=== PATIENT | female | born 1935 | race Caucasian/White ===

== ENCOUNTER 2018-06-27 11:29 | Emergency (ER) | payer MEDICARE, OTHER ==
[~2018-06-27] VITALS: Ht 167.6 cm; Wt 74.8 kg
[~2018-06-27 11:29] MED LIST: ACEASPCAF PO; ACET500; ACET500 PO; ALBIPROI; ALBIPROI INH; ALBU.083IS IH; ALBU.083IS INH; ALBU3IS INH; ALBU90OI; ALBUIS IH; ASCO250CH PO; ASPI325; ASPI325 PO; ASPI81CH PO; ASPI81EC PO; ATOR40TA; CAND32; CEFA125SU; CEFA250 PO; CEFA500ER; CEFP200 PO; CEPH500 PO; CIME400 PO; CIMETIDINE; CLOP75; CLOP75 PO; CODACE30; CODACE30 PO; CODE30 PO; EXCEDRIN TENSION; EXCEDRIN TENSION PO; FAMO40 PO; FLUT.05NI; GUAI600T33 PO; HYDR1TAB94 PO; Iron Supplemen325 MG PO; LISI10; LISI20; LISI20 PO; LORA1SY; LORPSEER24; METO100; METO100 PO; METO50; METO50 PO; NEBULIZER; NITR100CA PO; OMEP10ER PO; OMEP20ER; OMEP20ER PO; ONDA4 PO; ONDA4ODT MM; PRED20 PO; THYR60; THYR60 PO; THYROID MED; TRIHYD253A PO; Ventolin Soln3 ML INH; [UNRECOGNIZED DRUG - OTHER]
[2018-06-27 12:14] LABS: BASOPHILS ABSOLUTE AUTO 0.07 K/mm3 (0.00-0.23); BASOPHILS PERCENT AUTO 1 % (0-2); EOSINOPHILS ABSOLUTE AUTO 0.72 K/mm3 (0.00-0.68); EOSINOPHILS PERCENT AUTO 8 % (0-6); Hematocrit 37.1 % (33.0-51.0); Hemoglobin 11.7 g/dL (11.5-16.0); IMMATURE GRAN ABSOLUTE AUTO 0.02 K/mm3 (0.00-0.10); IMMATURE GRAN PERCENT AUTO 0 % (0-1); LYMPHOCYTES ABSOLUTE AUTO 3.47 K/mm3 (0.84-5.20); LYMPHOCYTES PERCENT AUTO 40 % (21-46); MONOCYTES ABSOLUTE AUTO 0.77 K/mm3 (0.16-1.47); MONOCYTES PERCENT AUTO 9 % (4-13); Mean Corpuscular HGB 33.5 pg (26.0-34.0); Mean Corpuscular HGB Conc 31.5 g/dL (31.5-36.5); Mean Corpuscular Volume 106 fL (80-100); Mean Platelet Volume 10.9 fL (9.1-12.4); NEUTROPHILS ABSOLUTE AUTO 3.72 K/mm3 (1.96-9.15); NEUTROPHILS PERCENT AUTO 42 % (41-73); Platelet Count 218 K/mm3 (150-400); RDW Coefficient Variation 12.7 % (11.7-14.2); RDW Standard Deviation 49.5 fL (35.1-46.3); Red Blood Cell Count 3.49 M/mm3 (3.80-5.20); White Blood Cell Count 8.77 K/mm3 (4.00-11.30)
[2018-06-27 12:35] LABS: Alanine Aminotransfer (ALT/SGP 18 U/L (12-78); Albumin, Blood 3.3 g/dL (3.4-5.0); Albumin/Globulin Ratio 0.8 (0.8-1.8); Alk Phos 72 U/L (50-136); Anion Gap 17 mmol/L (6-16); Aspartate Aminotrans (AST/SGOT 23 U/L (12-37); Bilirubin, Total 0.5 mg/dL (0.1-1.0); Blood Urea Nitrogen 38 mg/dL (8-24); Bun/Creatinine Ratio 16.7 (12.0-20.0); CO2, Blood 18 mmol/L (21-32); Calcium, Blood 9.4 mg/dL (8.5-10.1); Chloride, Blood 107 mmol/L (98-108); Creatinine, Blood 2.27 mg/dL (0.40-1.00); Globulin, Blood 4.4 g/dL (2.2-4.0); Glomerular Filtration Rate 22 (60-); Glucose, Blood 82 mg/dL (70-99); Sodium, Blood 142 mmol/L (136-145); Total Protein, Blood 7.7 g/dL (6.4-8.2); Troponin I <0.015 ng/mL (0.000-0.040)
[2018-06-27 13:47] LABS: Source, Urine Clean Catch
[2018-06-27 13:53] LABS: Blood, Urine Neg (Neg); Glucose Qualitative, Urine Neg (Neg); Ketones, Urine 2+ (Neg); Leukocyte Esterase, Urine 1+ (Neg); Nitrite, Urine Neg (Neg); Protein, Urine 1+ (Neg); Urobilinogen, Urine NORM (Normal)
[2018-06-27 14:34] LABS: Appearance, Urine Clear (Clear); Bilirubin, Urine 1+ (Neg); Color, Urine Yellow (P-Yellow)
[2018-06-27 14:37] LABS: Red Blood Cells, Urine Not Seen /hpf (0-2)
[2018-06-27 14:38] LABS: Bacteria Rare /hpf; Squamous Epithelial Cells Rare /hpf (Few); White Blood Cells, Urine 0-2 /hpf (0-5)
== END 2018-06-27 15:58 | disposition home or self-care (01) ==
LOC: ER 11:29
PROVIDERS: Emergency Medicine
DX: S09.90XA Unspecified injury of head, initial encounter (principal); N18.9 Chronic kidney disease, unspecified; E86.0 Dehydration; W06.XXXA Fall from bed, initial encounter; I25.2 Old myocardial infarction; I10 Essential (primary) hypertension; Z88.8 Allergy status to other drugs, medicaments and biological substances; Z88.6 Allergy status to analgesic agent; Z88.0 Allergy status to penicillin; Z88.2 Allergy status to sulfonamides; Z88.1 Allergy status to other antibiotic agents; Z79.899 Other long term (current) drug therapy; Z79.82 Long term (current) use of aspirin
CPT/HCPCS: 70450; 71046; 72125; 80053; 81001; 84484; 85025; 93005; 93010; 96360; 99285-25; J7120

== ENCOUNTER 2018-10-01 13:06 | Inpatient (IN) | payer MEDICARE, OTHER ==
[~2018-10-01] VITALS: Ht 152.4 cm; Wt 56.9 kg
[2018-10-01] MEDS ORDERED: LEVSOD88 PO (13:28)
[2018-10-01] MEDS ORDERED: TYLECOD3 PO (13:29)
[2018-10-01] MEDS ORDERED: METO100ER PO (13:29)
[2018-10-01] MEDS ORDERED: MINO50 PO (13:30)
[2018-10-01] MEDS ORDERED: Advair Hfa 230-12 GM (13:30)
[2018-10-01] MEDS ORDERED: ASPI81CH PO (13:30)
[2018-10-01] MEDS ORDERED: PERISHIELD OIN452 GM (13:30)
[2018-10-01] MEDS ORDERED: CIME400 PO (13:30)
[2018-10-01 13:42] LABS: BASOPHILS ABSOLUTE AUTO 0.09 K/mm3 (0.00-0.23); BASOPHILS PERCENT AUTO 1 % (0-2); EOSINOPHILS ABSOLUTE AUTO 0.27 K/mm3 (0.00-0.68); EOSINOPHILS PERCENT AUTO 2 % (0-6); Hematocrit 36.3 % (33.0-51.0); Hemoglobin 11.6 g/dL (11.5-16.0); IMMATURE GRAN ABSOLUTE AUTO 0.05 K/mm3 (0.00-0.10); IMMATURE GRAN PERCENT AUTO 0 % (0-1); LYMPHOCYTES ABSOLUTE AUTO 3.84 K/mm3 (0.84-5.20); LYMPHOCYTES PERCENT AUTO 32 % (21-46); MONOCYTES ABSOLUTE AUTO 0.85 K/mm3 (0.16-1.47); MONOCYTES PERCENT AUTO 7 % (4-13); Mean Corpuscular HGB 34.3 pg (26.0-34.0); Mean Corpuscular Volume 107 fL (80-100); Mean Platelet Volume 10.1 fL (9.1-12.4); NEUTROPHILS ABSOLUTE AUTO 6.78 K/mm3 (1.96-9.15); NEUTROPHILS PERCENT AUTO 57 % (41-73); Platelet Count 208 K/mm3 (150-400); RDW Coefficient Variation 15.4 % (11.7-14.2); RDW Standard Deviation 61.5 fL (35.1-46.3); Red Blood Cell Count 3.38 M/mm3 (3.80-5.20); White Blood Cell Count 11.88 K/mm3 (4.00-11.30)
[2018-10-01 14:04] LABS: Alanine Aminotransfer (ALT/SGP 13 U/L (12-78); Albumin, Blood 2.5 g/dL (3.4-5.0); Albumin/Globulin Ratio 0.5 (0.8-1.8); Alk Phos 97 U/L (50-136); Anion Gap 15 mmol/L (6-16); Aspartate Aminotrans (AST/SGOT 23 U/L (12-37); Bilirubin, Total 0.5 mg/dL (0.1-1.0); Blood Urea Nitrogen 30 mg/dL (8-24); Bun/Creatinine Ratio 15.6 (12.0-20.0); CO2, Blood 18 mmol/L (21-32); Calcium, Blood 8.9 mg/dL (8.5-10.1); Chloride, Blood 105 mmol/L (98-108); Creatinine, Blood 1.92 mg/dL (0.40-1.00); Globulin, Blood 4.8 g/dL (2.2-4.0); Glomerular Filtration Rate 26 (60-); Glucose, Blood 131 mg/dL (70-99); Potassium, Blood 4.3 mmol/L (3.5-5.5); Sodium, Blood 138 mmol/L (136-145); Total Protein, Blood 7.3 g/dL (6.4-8.2); Troponin I <0.015 ng/mL (0.000-0.040)
[2018-10-01 16:33] LABS: Source, Urine Catheter
[2018-10-01 16:45] LABS: Bilirubin, Urine Neg (Neg); Blood, Urine 4+ (Neg); Glucose Qualitative, Urine Neg (Neg); Ketones, Urine 2+ (Neg); Leukocyte Esterase, Urine 3+ (Neg); Nitrite, Urine Pos (Neg); Protein, Urine 2+ (Neg); Urobilinogen, Urine NORM (Normal); pH, Urine 6.5 (5.0-8.0)
[2018-10-01 16:56] LABS: Appearance, Urine Clear (Clear); Color, Urine Yellow (P-Yellow)
[2018-10-01 16:57] LABS: White Blood Cells, Urine 50-100 /hpf (0-5)
[2018-10-01 16:58] LABS: Bacteria Mod /hpf; Red Blood Cells, Urine 25-50 /hpf (0-2); Squamous Epithelial Cells Mod /hpf (Few)
--- NOTE | 2018-10-02 01:03 | NUR ---
PATIENT IS A NEW ADMIT FROM THE ED. THREE PERSON TRANSFER FROM THE [facility] TO BED. AXOX 3 AND BEDFAST. PATIENT REPORTS GENERAL PAIN AND TYLENOL GIVEN PER EMAR. FAMILY PRESENT ON ADMIT. DAUGHTER AND STAYING THE NIGHT. FAMILY AND PATIENT ORIENTED TO CALL LIGHT SYSTEM. CALL LIGHT IN REACH.
--- NOTE | 2018-10-02 01:06 | NUR ---
IV ABX INFUSING WITH NS FLUSH. IV ABX COMPLETE AND LR STARTED AT 100mL/HR. PHOTO TAKEN OF SACRAL PRESSURE ULCER AND IN CHART. CONSENT SIGNED. CALL LIGHT IN REACH. WILL CONTINUE TO MONITOR.
--- NOTE | 2018-10-02 01:33 | NUR ---
CODE STATUS CHANGE BY PATIENT AND FAMILY FROM DNR TO FULL CODE. HOSPITLIST B[employer]T [employer]OX SEALING MACHINE FEEDER NOTIFIED AND ORDERED CHANGE .
--- NOTE | 2018-10-02 04:26 | NUR ---
SHIFT SUMMARY PATIENT HAD NO ACUTE CHANGES OBSERVED DURING THE SHIFT. AXOX 3 AND BEDFAST PER FAMILY WITH WEAKNESS. PIV REMAINS INTACT. IV ABX INFUSED. LR INFUSING AT 100mL/HR. REPORTED GENERAL PAIN AND RECEIVED TYLENOL PER EMAR. SACRAL STAGE 3 PRESSURE ULCER, PHOTO IN CHART. DAUGHTER AND SON PRESENT ON ADMIT AND STAYING THE SHIFT. VSS/AFEBRILE. CALL LIGHT IN REACH. BED IN LOWEST POSITION. WILL CONTINUE TO MONITOR UNTIL DAY SHIFT NURSE ASSUMES CARE.
[2018-10-02 06:05] LABS: BASOPHILS ABSOLUTE AUTO 0.06 K/mm3 (0.00-0.23); BASOPHILS PERCENT AUTO 1 % (0-2); EOSINOPHILS ABSOLUTE AUTO 0.07 K/mm3 (0.00-0.68); EOSINOPHILS PERCENT AUTO 1 % (0-6); Hemoglobin 10.9 g/dL (11.5-16.0); IMMATURE GRAN ABSOLUTE AUTO 0.05 K/mm3 (0.00-0.10); IMMATURE GRAN PERCENT AUTO 1 % (0-1); LYMPHOCYTES ABSOLUTE AUTO 3.16 K/mm3 (0.84-5.20); LYMPHOCYTES PERCENT AUTO 33 % (21-46); MONOCYTES ABSOLUTE AUTO 0.94 K/mm3 (0.16-1.47); MONOCYTES PERCENT AUTO 10 % (4-13); Mean Corpuscular HGB Conc 30.3 g/dL (31.5-36.5); Mean Corpuscular Volume 109 fL (80-100); Mean Platelet Volume 10.3 fL (9.1-12.4); NEUTROPHILS ABSOLUTE AUTO 5.42 K/mm3 (1.96-9.15); NEUTROPHILS PERCENT AUTO 56 % (41-73); Platelet Count 161 K/mm3 (150-400); RDW Coefficient Variation 15.3 % (11.7-14.2); RDW Standard Deviation 62.3 fL (35.1-46.3)
[2018-10-02 06:19] LABS: Bun/Creatinine Ratio 18.1 (12.0-20.0); Calcium, Blood 8.1 mg/dL (8.5-10.1); Creatinine, Blood 1.49 mg/dL (0.40-1.00); Potassium, Blood 3.9 mmol/L (3.5-5.5)
--- NOTE | 2018-10-02 13:57 | NUR ---
FRESH MEPILEX APPLIED TO SACRAL DECUBITUS AFTER ATTENDS CHANGE AND MAURY CARE.
[2018-10-02 14:22] LABS: Percent Saturation 43.6 % (15.0-50.0)
[2018-10-02 14:46] LABS: Albumin, Blood 2.3 g/dL (3.4-5.0); Anion Gap 19 mmol/L (6-16); Blood Urea Nitrogen 25 mg/dL (8-24); Bun/Creatinine Ratio 17.4 (12.0-20.0); CO2, Blood 13 mmol/L (21-32); Calcium, Blood 8.3 mg/dL (8.5-10.1); Chloride, Blood 106 mmol/L (98-108); Creatinine, Blood 1.44 mg/dL (0.40-1.00); Glomerular Filtration Rate 37 (60-); Glucose, Blood 87 mg/dL (70-99); Phosphorus, Blood 2.6 mg/dL (2.5-4.9); Potassium, Blood 4.5 mmol/L (3.5-5.5); Sodium, Blood 138 mmol/L (136-145)
--- NOTE | 2018-10-02 18:00 | NUR ---
SHIFT SUMMARY PT WITH GENERALIZED PAIN AND DYSURIA. CONFUSED BUT OX1 SELF, FAMILY. BEDREST. LIVES AT HOME WITH FAMILY. STAGE 3 DECUBITUS TO SACRUM-MEPILEX IN PLACE. INCONTINENT. REFUSING MEALS ONLY TAKING SMALL SIPS AND BITES AFTER ENCOURAGEMENT FROM FAMILY. DRY HEAVING AND C/O NAUSEA INTERMITTENTLY THROUGHOUT SHIFT NO VOMITING. FAMILY REQUESTING PATIENT BE GIVEN TYLENOL #3 THAT SHE HAS BEEN TAKING AT HOME FOR PAST 3 YEARS AND HAS BEEN EFFECTIVE.
--- NOTE | 2018-10-02 20:34 | NUR ---
NS STARTED AT 125mL/HR. PATIENT SLEEPING BUT AUROUSABLE. FAMILY PRESENT AND STAYING FOR THE SHIFT. CALL LIGHT IN REACH.
--- NOTE | 2018-10-03 04:36 | NUR ---
SHIFT SUMMARY PATIENT HAD NO ACUTE CHANGES OBSERVED DURING THE SHIFT. REPORTED GENERAL PAIN AND RECEIVED TYLENOL PER EMAR X TWO. DAUGHTER PRESENT COMPLETE SHIFT IN ROOM. PIV REMAINS INTACT. NS INFUSING AT 125mL/HR. DENIES SOB AND N/V. VSS/AFEBRILE. TAKES MEDICATION 1-2 AT A TIME. AXO X3 AND DAUGHTER REPORTS BEDFAST LAST FEW WEEKS WITH INCREASE WEAKNESS AND POOR APPETITE. CALL LIGHT IN REACH. BED IN LOWEST POSITION. WILL CONTINUE TO MONITOR UNTIL DAY SHIFT NURSE ASSUMES CARE.
[2018-10-03 05:40] LABS: BASOPHILS ABSOLUTE AUTO 0.04 K/mm3 (0.00-0.23); BASOPHILS PERCENT AUTO 1 % (0-2); EOSINOPHILS PERCENT AUTO 1 % (0-6); Hematocrit 32.8 % (33.0-51.0); Hemoglobin 10.4 g/dL (11.5-16.0); IMMATURE GRAN ABSOLUTE AUTO 0.02 K/mm3 (0.00-0.10); IMMATURE GRAN PERCENT AUTO 0 % (0-1); LYMPHOCYTES ABSOLUTE AUTO 2.81 K/mm3 (0.84-5.20); LYMPHOCYTES PERCENT AUTO 36 % (21-46); MONOCYTES ABSOLUTE AUTO 0.61 K/mm3 (0.16-1.47); MONOCYTES PERCENT AUTO 8 % (4-13); Mean Corpuscular HGB 33.9 pg (26.0-34.0); Mean Corpuscular HGB Conc 31.7 g/dL (31.5-36.5); Mean Corpuscular Volume 107 fL (80-100); Mean Platelet Volume 10.3 fL (9.1-12.4); NEUTROPHILS PERCENT AUTO 55 % (41-73); Platelet Count 176 K/mm3 (150-400); RDW Coefficient Variation 15.3 % (11.7-14.2); Red Blood Cell Count 3.07 M/mm3 (3.80-5.20); White Blood Cell Count 7.88 K/mm3 (4.00-11.30)
[2018-10-03 06:09] LABS: Albumin, Blood 2.1 g/dL (3.4-5.0); Anion Gap 15 mmol/L (6-16); Blood Urea Nitrogen 19 mg/dL (8-24); Bun/Creatinine Ratio 14.6 (12.0-20.0); CO2, Blood 17 mmol/L (21-32); Calcium, Blood 7.5 mg/dL (8.5-10.1); Chloride, Blood 110 mmol/L (98-108); Glomerular Filtration Rate 41 (60-); Glucose, Blood 105 mg/dL (70-99); Phosphorus, Blood 2.3 mg/dL (2.5-4.9); Potassium, Blood 3.4 mmol/L (3.5-5.5); Sodium, Blood 142 mmol/L (136-145)
--- NOTE | 2018-10-03 19:23 | NUR ---
SHIFT SUMMARY: NO ACUTE CHANGES TO REPORT THIS SHIFT. PT A&O; OCCASIONAL CONFUSION. PT WEAK; ON BEDREST. MEDICATED FOR NAUSEA & PAIN PER EMAR. IV ABX CONTINUING. REPORT GIVEN TO ONCOMING RN.
--- NOTE | 2018-10-04 06:53 | NUR ---
SHIFT SUMMARY THE PT IS A&O X 2-3. SHE COMPLAINED OF NAUSEA AND ABD PAIN, AND IN THE EVENING BEGAN HAVING COFFEE GROUND EMESIS WELL BLACK, TARRY STOOL REPORTED BY THE SURGICAL SERVICES TECH. THE HOSPITALIST, SEYMOUR BERG, WAS NOTIFIED, WHO ASKED THAT GI DR MATOS, WHO WAS ALREADY BEING CONSULTED, ALSO BE NOTIFIED. DR MATOS REITERATED THE NEED FOR AN UPPER ENDOSCOPY, AND SPOKE WITH THE PATIENT AND THE PATIENT'S SON AND DAUGHTER WHO WERE IN THE ROOM. THE PT WAS ABLE TO KEEP PO MEDS DOWN, AND SO HER AM THYROID PILL WAS HELD. PT WAS MEDICATED WITH REGLAN X 1, AND ZOFRAN X 1 FOR NAUSEA. PT'S BP WAS ELEVATED DURING EVENING VITALS, AND SHE WAS GIVEN HYDRALAZINE X 1. ALL OTHER VITALS STABLE. NO OTHER ACUTE CHANGES IN PT CONDITION NOTED. WILL CONTINUE TO MONITOR AND TREAT PER EMAR UNTIL HAND OFF TO DAY SHIFT.
[2018-10-04 07:13] LABS: Albumin, Blood 2.2 g/dL (3.4-5.0); Anion Gap 19 mmol/L (6-16); Blood Urea Nitrogen 17 mg/dL (8-24); Bun/Creatinine Ratio 15.3 (12.0-20.0); CO2, Blood 12 mmol/L (21-32); Calcium, Blood 7.1 mg/dL (8.5-10.1); Chloride, Blood 111 mmol/L (98-108); Creatinine, Blood 1.11 mg/dL (0.40-1.00); Glomerular Filtration Rate 50 (60-); Glucose, Blood 224 mg/dL (70-99); Phosphorus, Blood 1.8 mg/dL (2.5-4.9); Potassium, Blood 3.5 mmol/L (3.5-5.5); Sodium, Blood 142 mmol/L (136-145)
[2018-10-04 08:42] LABS: BASOPHILS ABSOLUTE AUTO 0.01 K/mm3 (0.00-0.23); BASOPHILS PERCENT AUTO 0 % (0-2); EOSINOPHILS PERCENT AUTO 0 % (0-6); Hematocrit 33.2 % (33.0-51.0); Hemoglobin 10.9 g/dL (11.5-16.0); IMMATURE GRAN ABSOLUTE AUTO 0.12 K/mm3 (0.00-0.10); IMMATURE GRAN PERCENT AUTO 1 % (0-1); LYMPHOCYTES ABSOLUTE AUTO 1.52 K/mm3 (0.84-5.20); LYMPHOCYTES PERCENT AUTO 16 % (21-46); MONOCYTES ABSOLUTE AUTO 0.46 K/mm3 (0.16-1.47); MONOCYTES PERCENT AUTO 5 % (4-13); Mean Corpuscular HGB 33.5 pg (26.0-34.0); Mean Corpuscular HGB Conc 32.8 g/dL (31.5-36.5); Mean Platelet Volume 10.2 fL (9.1-12.4); NEUTROPHILS ABSOLUTE AUTO 7.66 K/mm3 (1.96-9.15); NEUTROPHILS PERCENT AUTO 78 % (41-73); Platelet Count 192 K/mm3 (150-400); RDW Coefficient Variation 15.6 % (11.7-14.2); RDW Standard Deviation 58.5 fL (35.1-46.3); Red Blood Cell Count 3.25 M/mm3 (3.80-5.20); White Blood Cell Count 9.77 K/mm3 (4.00-11.30)
[2018-10-04 08:43] LABS: Mean Corpuscular Volume 102 fL (80-100)
--- NOTE | 2018-10-04 13:16 | NUR ---
History, Chart, Medications and Allergies reviewed before start of procedure BY MARIAELENA TEJADA. Patient confirms NPO status and agrees with scheduled surgery. Lungs clear T/O to Auscultation.
--- NOTE | 2018-10-04 13:55 | NUR ---
10/04/18 1355 Amari Granado History, Chart, Medications and Allergies reviewed before start of procedure.MONITOR INTACT WITH CONTINUOUS PULSE OXIMETRY AND INTERMITTENT BP.3-LEAD EKG REVIEWED WITH PHYSICIAN PRIOR TO START OF PROCEDURE.O2 VIA N/C INTACT THROUGHOUT SEDATION/PROCEDURE. Patient confirms NPO status and agrees with scheduled surgery.See Anesthesia record.
--- NOTE | 2018-10-04 17:37 | NUR ---
PT A/OX3, PLEASANT AND COOPERATIVE, THE PT IS A TURN Q2 HRS, PT HAD 2 SOFT BM TODAY, LOTION WAS APPLIED TO EXCORIATED AREA, THE PT APPEARS TO BE BREATHING EASILY ON RA AT THIS TIME, THE PTS VSS WERE STABLE T/O THE DA, THE PT IS DISCHARGED, THE PTS VERBALIZED UNDERSTANDING OF THE DC INSTRUCTIONS, PT AWAITING TO GO HOME AT THIS TIME, PERSCRIPTIONS FAXED TO [employer] REQUESTED
--- NOTE | 2018-10-04 17:45 | NUR ---
PT A/OX3, PLEASANT AND COOPERATIVE, THE PT HAS BEEN BEDBOUND TODAY DUE TO EXTREM WEAKNESS AND NAUSEA/ VOMITING, THE PT HAS HAD LITTLE PO INTAKE TODAY, THE PT HAD AN EGD DONE TODAY WHICH SHOWED MULTIPLE UCLER/LESIONS TODAY, NEW ORDERS WERE GIVEN, THE PTS FAMILY IS AT THE BEDSIDE, THE PT APPEARS TO BE BREATHING EASILY ON O2 AT THIS TIME, CALL LIGHT IN REACH BED IN LOW POSITION
[2018-10-05 05:15] LABS: BASOPHILS ABSOLUTE AUTO 0.01 K/mm3 (0.00-0.23); BASOPHILS PERCENT AUTO 0 % (0-2); EOSINOPHILS PERCENT AUTO 0 % (0-6); Hematocrit 25.1 % (33.0-51.0); Hemoglobin 8.4 g/dL (11.5-16.0); IMMATURE GRAN ABSOLUTE AUTO 0.05 K/mm3 (0.00-0.10); IMMATURE GRAN PERCENT AUTO 1 % (0-1); LYMPHOCYTES ABSOLUTE AUTO 2.54 K/mm3 (0.84-5.20); LYMPHOCYTES PERCENT AUTO 24 % (21-46); MONOCYTES ABSOLUTE AUTO 0.68 K/mm3 (0.16-1.47); MONOCYTES PERCENT AUTO 6 % (4-13); Mean Corpuscular HGB 33.6 pg (26.0-34.0); Mean Corpuscular HGB Conc 33.5 g/dL (31.5-36.5); Mean Corpuscular Volume 100 fL (80-100); Mean Platelet Volume 10.5 fL (9.1-12.4); NEUTROPHILS PERCENT AUTO 70 % (41-73); Platelet Count 156 K/mm3 (150-400); RDW Coefficient Variation 15.8 % (11.7-14.2); RDW Standard Deviation 57.6 fL (35.1-46.3); White Blood Cell Count 10.78 K/mm3 (4.00-11.30)
[2018-10-05 05:37] LABS: Bun/Creatinine Ratio 13.6 (12.0-20.0); Calcium, Blood 6.5 mg/dL (8.5-10.1); Creatinine, Blood 1.03 mg/dL (0.40-1.00); Phosphorus, Blood 2.9 mg/dL (2.5-4.9); Potassium, Blood 3.1 mmol/L (3.5-5.5)
[2018-10-05 05:50] LABS: Magnesium, Blood 0.7 mg/dL (1.6-2.4)
--- NOTE | 2018-10-05 06:42 | NUR ---
SHIFT SUMMARY PT IS A&O X 2-3, THOUGH DROWSY THROUGH THE NIGHT. THE PT SLEPT WELL DURING THE NIGHT, BUT WHEN WOKEN FOR MEDS OR CARE SHE WOULD REPEAT "OH GOD", AND STATED THAT SHE "ISN'T FEELING WELL" THOUGH WOULDN'T SPECIFY ANY FURTHER. PT WAS MEDICATED ONCE FOR NAUSEA WITH PRN ZOFRAN. SHE WAS ALSO MEDICATED ONCE FOR A HEADACHE WITH TYLENOL, BUT WAS ONLY ABLE TO SWALLOW ONE OF THE PILLS AND REFUSED THE OTHER. DURING AM LABS, MAGNESIUM WAS FOUND TO BE CRITICALLY LOW AT 0.7. THE HOSPITALIST DR FERMIN WAS CALLED, AND A 2 MG IV DOSE WAS ORDERED AND STARTED. VITAL SIGNS STABLE. NO OTHER ACUTE CHANGES IN PT CONDITION NOTED. WILL CONTINUE TO MONITOR AND TREAT PER EMAR UNTIL HAND OFF TO DAY SHIFT.
--- NOTE | 2018-10-05 15:59 | NUR ---
PT IS A/OX3, PLEASANT AND COOPERATIVE, THE PT HAS SOME MILD CONFUSION AT TIMES, THE PT IS VERY PALE IN COLOR, VERY FRAIL AND WEAK, UP WITH 1-2 PERSON ASSIST TO THE CHAIR, THE PTS FAMILY HAS BEEN AT THE BEDSIDE T/O, AND PARTICIPATES WITH THE PTS CARE, THE PT HAS DIFFICULTY SWALLOWING DUE TO PAIN, AND IS TAKING VERY LITTLE PO NUTRITION, NO EMISIS OR BLACK TARY STOOLS SO FAR THIS SHIFT, CALL LIGHT IN REACH BED IN THE LOW POSITION
--- NOTE | 2018-10-06 04:46 | NUR ---
*SHIFT SUMMARY* PATIENT RESTING IN BED, SON AND DAUGHTER AT BEDSIDE. PATIENT IS ALERT AND ORIENTED TO SELF AND FAMILY. PATIENT COMPLAINS OF NAUSEA. PATIENT COUGHED AFTER TAKING A DRINK OF WATER. PATIENT STATES IT HURTS TO SWALLOW. PATIENT STATES THAT SHE FEELS SHE CAN SWALLOW THE MAGNESIUM PILL ONCE. PATIENT STATED SHE WOULD TRY THE PILL CRUSHED IN [place]ERB[place]. PATIENT STARTED TO VOMIT AFTER SWALLOWING BITE OF [place]ERB[place]. PATIENT WAS ABLE TO HOLD IT DOWN AND NOT VOMIT. PATIENT SLEPT OFF AND ON THROUGHOUT THE NIGHT. PATIENT AWOKE THROUGHOUT THE NIGHT AND COMPLAINED OF LEG PAIN. ONLY NEW ORDER WAS FOR K-PAD, PATIENT REPORTS HAVING SOME RELEIF WITH HEATING PAD.
[2018-10-06 05:44] LABS: BASOPHILS ABSOLUTE AUTO 0.01 K/mm3 (0.00-0.23); BASOPHILS PERCENT AUTO 0 % (0-2); EOSINOPHILS PERCENT AUTO 0 % (0-6); Hematocrit 25.7 % (33.0-51.0); Hemoglobin 8.5 g/dL (11.5-16.0); IMMATURE GRAN ABSOLUTE AUTO 0.07 K/mm3 (0.00-0.10); IMMATURE GRAN PERCENT AUTO 1 % (0-1); LYMPHOCYTES ABSOLUTE AUTO 1.87 K/mm3 (0.84-5.20); LYMPHOCYTES PERCENT AUTO 21 % (21-46); MONOCYTES ABSOLUTE AUTO 0.46 K/mm3 (0.16-1.47); MONOCYTES PERCENT AUTO 5 % (4-13); Mean Corpuscular HGB 34.1 pg (26.0-34.0); Mean Corpuscular HGB Conc 33.1 g/dL (31.5-36.5); Mean Platelet Volume 10.3 fL (9.1-12.4); NEUTROPHILS ABSOLUTE AUTO 6.39 K/mm3 (1.96-9.15); NEUTROPHILS PERCENT AUTO 73 % (41-73); NRBC ABSOLUTE 0.02 K/mm3 (0.00-0.02); NRBC Auto 0.2 /100 WBC (0.0-0.2); Platelet Count 165 K/mm3 (150-400); RDW Coefficient Variation 16.4 % (11.7-14.2); RDW Standard Deviation 62.3 fL (35.1-46.3); Red Blood Cell Count 2.49 M/mm3 (3.80-5.20)
[2018-10-06 05:50] LABS: Mean Corpuscular Volume 103 fL (80-100)
[2018-10-06 06:01] LABS: Bun/Creatinine Ratio 11.1 (12.0-20.0); Calcium, Blood 6.6 mg/dL (8.5-10.1); Creatinine, Blood 0.99 mg/dL (0.40-1.00); Magnesium, Blood 1.6 mg/dL (1.6-2.4); Potassium, Blood 3.4 mmol/L (3.5-5.5)
--- NOTE | 2018-10-06 17:34 | NUR ---
PT HAS INTERMITTENT NAUSEA. HARD TO KEEP DOWN ANY FOOD. MEDS TAKEN CRUSHED WITH LORNA. PT C/O PAIN MEDICATED PER EMAR. FAMILY AT BED SIDE. NS @125/HR. POSITION CHANGES Q2 WITH CHANGES. MEPLEX TO SACRUM CHANGED. WILL CONTINUE TO MONITOR.
--- NOTE | 2018-10-07 04:38 | NUR ---
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 NOT TOLERATING MUCH PO. SHE TOLERATES ICE CHIPS, SMALL SIPS OF WATER AND SMALL BITES SHERBERT AND THE OCCASSIONAL PILL CUT INTO VERY SMALL PIECES. COMPLAINS OF PAIN BUT NOT TOLERATING PO PAIN PILLS. CBR. TURN Q2. FAMILY REMAINS AT BEDSIDE. INCONTINENT
[2018-10-07 11:21] LABS: Hematocrit 25.4 % (33.0-51.0); Hemoglobin 8.2 g/dL (11.5-16.0)
[2018-10-07 14:06] LABS: BASOPHILS ABSOLUTE AUTO 0.01 K/mm3 (0.00-0.23); BASOPHILS PERCENT AUTO 0 % (0-2); EOSINOPHILS PERCENT AUTO 0 % (0-6); Hematocrit 24.8 % (33.0-51.0); Hemoglobin 8.1 g/dL (11.5-16.0); IMMATURE GRAN ABSOLUTE AUTO 0.05 K/mm3 (0.00-0.10); IMMATURE GRAN PERCENT AUTO 1 % (0-1); LYMPHOCYTES ABSOLUTE AUTO 1.67 K/mm3 (0.84-5.20); LYMPHOCYTES PERCENT AUTO 21 % (21-46); MONOCYTES ABSOLUTE AUTO 0.46 K/mm3 (0.16-1.47); MONOCYTES PERCENT AUTO 6 % (4-13); Mean Corpuscular HGB 34.2 pg (26.0-34.0); Mean Corpuscular HGB Conc 32.7 g/dL (31.5-36.5); Mean Corpuscular Volume 105 fL (80-100); Mean Platelet Volume 10.5 fL (9.1-12.4); NEUTROPHILS ABSOLUTE AUTO 5.89 K/mm3 (1.96-9.15); NEUTROPHILS PERCENT AUTO 73 % (41-73); NRBC ABSOLUTE 0.02 K/mm3 (0.00-0.02); NRBC Auto 0.2 /100 WBC (0.0-0.2); Platelet Count 171 K/mm3 (150-400); RDW Coefficient Variation 17.2 % (11.7-14.2); RDW Standard Deviation 65.7 fL (35.1-46.3); Red Blood Cell Count 2.37 M/mm3 (3.80-5.20); White Blood Cell Count 8.08 K/mm3 (4.00-11.30)
[2018-10-07 14:17] LABS: Bun/Creatinine Ratio 10.2 (12.0-20.0); Creatinine, Blood 1.08 mg/dL (0.40-1.00); Potassium, Blood 3.6 mmol/L (3.5-5.5)
--- NOTE | 2018-10-07 16:01 | NUR ---
THIS RN ASSUMED CARE OF PATIENT, AGREE WITH THE POC.
--- NOTE | 2018-10-07 17:00 | NUR ---
ASSUMED CARE FROM PANCHO TEJADA
--- NOTE | 2018-10-08 04:44 | NUR ---
SHIFT SUMMARY PT VERY PALE AND WEAK, LYING FOWLERS TO SLEEP. C/O NAUSEA OFF AND ON THRU OUT THE SHIFT. MEDICATED PER EMAR. REFUSES MEDICATIONS AND CARE SHE WISHES. INCONTINENT OF BOWEL AND BLADDER. TURNED AND CHANGED THRU OUT SHIFT. IV'S INFUSING PER EMAR WITH CLINIMIX AND LIPIDS. PT UNCO-OP IN KEEPING ARMS POSITIONED IN ORDER TO KEEP IV'S PATENT. FAMILY STAYING AT BS; OFFERING PT PO LIQUIDS AND DO NOT INCREASE HOB TO PREVENT ASPIRATION. PT CHOKING AND COUGHING AFTER SON GIVING PT ICE WATER AND NOT SITTING PT UPRIGHT. HOB INCREASED BY THIS RN WHEN ENTERING . PT MEDICATED X1 FOR C/O PAIN. RESTING QUIETLY AT THIS TIME. CALL LT IN REACH.
[2018-10-08 06:39] LABS: BASOPHILS PERCENT AUTO 0 % (0-2); EOSINOPHILS PERCENT AUTO 0 % (0-6); Hematocrit 24.4 % (33.0-51.0); Hemoglobin 8.1 g/dL (11.5-16.0); IMMATURE GRAN ABSOLUTE AUTO 0.07 K/mm3 (0.00-0.10); IMMATURE GRAN PERCENT AUTO 1 % (0-1); LYMPHOCYTES ABSOLUTE AUTO 2.21 K/mm3 (0.84-5.20); LYMPHOCYTES PERCENT AUTO 28 % (21-46); MONOCYTES ABSOLUTE AUTO 0.35 K/mm3 (0.16-1.47); MONOCYTES PERCENT AUTO 5 % (4-13); Mean Corpuscular HGB 35.2 pg (26.0-34.0); Mean Corpuscular HGB Conc 33.2 g/dL (31.5-36.5); Mean Corpuscular Volume 106 fL (80-100); NEUTROPHILS ABSOLUTE AUTO 5.14 K/mm3 (1.96-9.15); NEUTROPHILS PERCENT AUTO 66 % (41-73); NRBC ABSOLUTE 0.08 K/mm3 (0.00-0.02); Platelet Count 180 K/mm3 (150-400); RDW Coefficient Variation 17.5 % (11.7-14.2); RDW Standard Deviation 65.9 fL (35.1-46.3); White Blood Cell Count 7.77 K/mm3 (4.00-11.30)
[2018-10-08 08:10] LABS: Albumin, Blood 2.1 g/dL (3.4-5.0); Albumin/Globulin Ratio 0.6 (0.8-1.8); Bilirubin, Total 0.4 mg/dL (0.1-1.0); Bun/Creatinine Ratio 14.3 (12.0-20.0); Calcium, Blood 7.2 mg/dL (8.5-10.1); Creatinine, Blood 1.12 mg/dL (0.40-1.00); Globulin, Blood 3.4 g/dL (2.2-4.0); Potassium, Blood 3.9 mmol/L (3.5-5.5); Total Protein, Blood 5.5 g/dL (6.4-8.2)
--- NOTE | 2018-10-08 11:02 | NUR ---
INITIAL PAL CARE VISIT NOTE: Pt sleeping with HOB elevated upon entering room. I introduced myself to pt's leilani and son in room. Discussed reason for my visit as establishing goals of care, dermining if we are providing care in line with pt/family wishes. Children of Audrey state they did tell ER Dr that pt desired full code but also express that she would not want to be intubated "skimmer". I asked if an advanced directive had been done previously or if a surrogate decision maker identified in the past. Children state they are pt's only family and would decide for her if she could not. We discussed pt's recent withdrawl from interaction and refusing much of care that may improve her current situation. Pt did wake up during our conversation but she was unable to participate in the conversation. I asked her if her children would be her health care decision makers if she was unable to do so and she said, "yes". After additional conversation about CPR, intubation and aggressive health care interventions, questions answered and daughter states, "these are really hard decisions to make". Support offered and I offered to return with any questions or concerns. Booklet "Hard choices for [place] People" given to son and leilani. They understand that their mother is very weak and that rescusitative efforts may not only harm her but also not benefit her beyond a temporary return of heart beat or respiratory support. Will remain available for further conversation as indicated. They would appreciate input from Giulia re: prognosis long-term. They report Audrey can be fairly clear and oriented when she is well and well rested but if ill or fatigued she struggles with thought processes and understanding conversations. Pt is 82 and admitted for anemia, possible colitis, UTI. She has declined CT of abd for further work up. She is severly deconditioned. She had N/V abd pain on admission. This is improved. Again, family understand that if pt cont. to have poor oral intake and decline care, her chances of improving and returning to her prior level of function/quality of life are not good. If that continues to be the case I would like to discuss comfort care and hospice with pt/family.
[2018-10-08 16:53] LABS: Source, Urine Catheter
[2018-10-08 17:11] LABS: Appearance, Urine Cloudy (Clear); Bilirubin, Urine Neg (Neg); Blood, Urine 4+ (Neg); Color, Urine Yellow (P-Yellow); Glucose Qualitative, Urine 2+ (Neg); Ketones, Urine 1+ (Neg); Leukocyte Esterase, Urine 3+ (Neg); Nitrite, Urine Neg (Neg); Protein, Urine 2+ (Neg); Urobilinogen, Urine NORM (Normal)
[2018-10-08 17:28] LABS: Squamous Epithelial Cells Not Seen /hpf (Few); Transitional Epithelial Cells Rare /hpf (0-Rare)
[2018-10-08 17:29] LABS: Bacteria Few /hpf; Red Blood Cells, Urine 25-50 /hpf (0-2); White Blood Cells, Urine TNTC /hpf (0-5)
--- NOTE | 2018-10-08 18:12 | NUR ---
SHIFT SUMMARY PT AXO TO SELF AND FAMILY. VSS. PATIENT DROWSY THROUGHOUT THE DAY. PALLIATIVE CARE IN TO TALK WITH PATIENT'S SON AND DAUGHTER, SEE NOTE. PT MEDICATED FOR PAIN PER EMAR, COMPLAINS OF HEADACHE. MEPILEX ON COCCYX, STAGE 3 PRESSURE ULCER, PT REPOSITONED FREQUENTLY. PT REFUSES MEALS. POWERGLIDE PATENT, DRESSING CHANGED BY HANK FELTON, RN INFUSING CLINAMIX AT THIS TIME. BED IN LOW POSITION, CALL LIGHT WITHIN REACH, BED ALARM ON AND FAMILY PRESENT THROUGHOUT THE DAY
--- NOTE | 2018-10-09 04:16 | NUR ---
SHIFT SUMMARY: PT IS ALERT AND ORIENTED TO SELF AND FAMILY. PT IS CALM AND COOPERATIVE WITH CARE. PT IS A MAX ASSIST FOR TRANSFERS, NOT OUT OF BED OVERNIGHT. PT DOES NOT USE HER CALL LIGHT, FAMILY IN THE ROOM OVERNIGHT, THEY CALL FOR NEEDS. PT REPORTS PAIN ON ONE OCCASION, GAVE PRN TRAMADOL. PT REPORTS NAUSEA ON ONE OCCASION, GAVE PRN ZOFRAN. PT DENIES VOMITING AND SOB. LIPIDS AND CLINIMIX RUNNING ORDERED. PT INCONTINENT ON SEVERAL OCCASIONS, CHANGED AND CLEANED NEEDED. NO ACUTE CHANGES. WILL REPORT TO DAY NURSE.
[2018-10-09 05:29] LABS: BASOPHILS ABSOLUTE AUTO 0.01 K/mm3 (0.00-0.23); BASOPHILS PERCENT AUTO 0 % (0-2); EOSINOPHILS ABSOLUTE AUTO 0.02 K/mm3 (0.00-0.68); EOSINOPHILS PERCENT AUTO 0 % (0-6); Hemoglobin 8.7 g/dL (11.5-16.0); IMMATURE GRAN ABSOLUTE AUTO 0.08 K/mm3 (0.00-0.10); IMMATURE GRAN PERCENT AUTO 1 % (0-1); LYMPHOCYTES ABSOLUTE AUTO 2.24 K/mm3 (0.84-5.20); LYMPHOCYTES PERCENT AUTO 26 % (21-46); MONOCYTES ABSOLUTE AUTO 0.55 K/mm3 (0.16-1.47); MONOCYTES PERCENT AUTO 7 % (4-13); Mean Corpuscular HGB Conc 34.8 g/dL (31.5-36.5); Mean Platelet Volume 10.5 fL (9.1-12.4); NEUTROPHILS PERCENT AUTO 66 % (41-73); NRBC ABSOLUTE 0.21 K/mm3 (0.00-0.02); NRBC Auto 2.5 /100 WBC (0.0-0.2); Platelet Count 190 K/mm3 (150-400); RDW Standard Deviation 63.5 fL (35.1-46.3); Red Blood Cell Count 2.42 M/mm3 (3.80-5.20)
[2018-10-09 05:30] LABS: Mean Corpuscular Volume 103 fL (80-100)
[2018-10-09 05:46] LABS: Magnesium, Blood 1.7 mg/dL (1.6-2.4)
[2018-10-09 06:24] LABS: Bun/Creatinine Ratio 19.5 (12.0-20.0); Calcium, Blood 7.2 mg/dL (8.5-10.1); Creatinine, Blood 1.23 mg/dL (0.40-1.00); Phosphorus, Blood 1.9 mg/dL (2.5-4.9); Potassium, Blood 3.7 mmol/L (3.5-5.5)
--- NOTE | 2018-10-09 10:15 | NUR ---
Met with pt and her son and daughter at the bedside. She is tired and has nausea that comes and goes. She has no appetite. She denies changes to taste, she just states she has no appetite. Her son confims that this has been an ongoing problem recently and that she has lost 20-30 pounds over the past few months. She complains of generalized abd discomfort. She is incontinent of bowel and bladder. Her parviz area is reddened and a dsg is dry and intact to her coccyx area. Gown changed, face washed and parviz care given. Repositioned pt. She states she wants to go home. She is sleepy this morning. Spoke with her son and daughter. Discussed POLST form and answered questions. Dr. Faulkner visited with pt during my visit in the room. Discussed different options of full code vs. DNR and explained the levels of comfort, limited and full interventions. Her son and daughter would like some time to discuss the options for treatment before making any decisions. Encouraged them to consider quality of life, pt's wants in their decision making. Pt told PC nurse yesterday that her children could decide on her care. Pt has declined further abd workup in the past and she has declined it again today. Dr. Faulkner reports he has changed pt's antibiotic and would like to see how she does over the next 24 hours. If she continues to not improve, decisions for considering EOL options will need to be made. Pt's children state they are aware of this. Pt has been living with her daughter who has been caring for her.
--- NOTE | 2018-10-09 16:16 | NUR ---
Stopped to check in on pt and family. Pt was recently medicated with IV fentanyl for c/o pain all over according to her daughter. No decisions have been made a this time re: code status. Will follow-up with pt and her family tomorrow.
--- NOTE | 2018-10-09 17:43 | NUR ---
SUMMARY PT RESTING QUIETLY IN BED, FAMILY REMAINS AT THE BEDSIDE FOR MOST OF THE DAY, PT WITH VERY POOR ORAL INTAKE, ENCOURAGED ORAL ACID BLOCKERS, BUT PT REFUSED, ONLY TAKING SMALL SIPS, FAMILY HELPS WITH HER CARE, PALLIATIVE CARE WAS IN WITH THE PT AND FAMILY SEVERAL TIMES TODAY, PT MED PER EMAR FOR PAIN AND NAUSEA, VSS, NO ACUTE CHANGES, WILL CONT TO MONITOR
--- NOTE | 2018-10-10 05:32 | NUR ---
SHIFT SUMMARY: PT IS ALERT AND ORIENTED TO SELF AND FAMILY. PT IS CALM AND COOPERATIVE WITH CARE. PT DECONDITIONED, TOO WEAK TO GET OUT OF BED. FAMILY IN THE ROOM OVERNIGHT, WILL CALL FOR NEEDS. PT MEDICATED FOR PAIN ON SEVERAL OCCASIONS, FAMILY HESITANT TO GIVE IV FENTANYL, EVENTUALLY BECAME COMFORTABLE WITH IT. PT SHOWED S/S FOR NAUSEA, GAVE PRN ZOFRAN. PT INCONTINENT ON SEVERAL OCCASIONS, CHANGED NEEDED. MEPILEX INTACT ON COCCYX. FLUIDS RUNNING ORDERED. WILL REPORT TO DAY NURSE.
[2018-10-10 05:44] LABS: Bun/Creatinine Ratio 22.7 (12.0-20.0); Calcium, Blood 7.2 mg/dL (8.5-10.1); Creatinine, Blood 1.32 mg/dL (0.40-1.00); Magnesium, Blood 1.7 mg/dL (1.6-2.4); Phosphorus, Blood 3.9 mg/dL (2.5-4.9); Potassium, Blood 4.5 mmol/L (3.5-5.5)
--- NOTE | 2018-10-10 10:00 | NUR ---
Met with Audrey's children at her bedside. She is resting quietly at this time. She will open her eyes and answer questions when spoken to, however she falls back to sleep quickly. Cooper, pt's children, spoke with Dr. Faulkner this morning and have decided to pursue comfort care and hospice so that pt will be able to go home with support. Pt has been refusing further testing and takes in minimal PO. Spoke with Joyce Terry who will contact [facility] with a referral. Pt's POLST form filled out and signed by her daughter. Pt, son and daughter agree that pt wants no further testing and treatment and they would like to pursue hospice services at this time. Pt has been medicated for pain and nausea. Poor PO intake, she is currently bedbound, too weak to ambulate. Pt's family would like to care for her at home where they feel she wants to be and will be more comfortable. PC will continue to follow for symptom management and coordination with CM for discharge with hospice.
--- NOTE | 2018-10-10 17:03 | NUR ---
Stopped in pt's room to check on pt and family. Pt is currently sleeping. Talon is at the bedside and reports that the plan is to go home with hospice care on Saturday with [facility] hosp[facility]. Talon is grateful for the assistance in coming up with a plan of care for Audrey. Nursing reports plan is for discharge on Saturday. Pt appears to be resting comfortably at this time.
--- NOTE | 2018-10-10 17:36 | NUR ---
SUMMARY PT RESTING QUIETLY IN BED, WAS MADE DNR AND COMFORT CARE TODAY, PT HAS BEEN MED PER EMAR FOR PAIN AND NAUSEA, NO ACUTE CHANGES, WILL CONT TO MONITOR
--- NOTE | 2018-10-10 20:22 | NUR ---
pt put on comfort care after extended illness. When rounding with day RN PT's Son Talon notified staff Momn not feeling well. She was having agonal resp and very pale. Repostioned and encouraged Son Talon to support his Mother. He was present when PT was pronounced no pulse no respiration at 1920. Son offered pastoral care he declined. [facility] in [place] chosen and they are being notified. Son removed Mothers personal belongings and can be reached at home phone number. Dr Sequeira notified at [phone]. Await Mort[facility] removal after postmortum care completed.
== END 2018-10-10 19:20 | DRG 682 ==
LOC: ER 13:06 → MEDS 17:47
PROVIDERS: Emergency Medicine; Hospitalist; Internal Medicine Gastroenterology; ADMIT Family Medicine
PROC: 3E02340 Introduction of Influenza Vaccine into Muscle, Percutaneous Approach (ICD-10-PCS; 2018-10-01)
PROC: 0DBA8ZX Excision of Jejunum, Via Natural or Artificial Opening Endoscopic, Diagnostic (ICD-10-PCS; 2018-10-04)
PROC: 0DB98ZX Excision of Duodenum, Via Natural or Artificial Opening Endoscopic, Diagnostic (ICD-10-PCS; principal; 2018-10-04 12:30)
PROC: 0DB68ZX Excision of Stomach, Via Natural or Artificial Opening Endoscopic, Diagnostic (ICD-10-PCS; 2018-10-04 12:30)
DX: N17.9 Acute kidney failure, unspecified (principal); L89.153 Pressure ulcer of sacral region, stage 3; E43 Unspecified severe protein-calorie malnutrition; K25.4 Chronic or unspecified gastric ulcer with hemorrhage; N39.0 Urinary tract infection, site not specified; D62 Acute posthemorrhagic anemia; E87.2 Acidosis; K92.0 Hematemesis; G93.40 Encephalopathy, unspecified; I25.2 Old myocardial infarction; Z95.5 Presence of coronary angioplasty implant and graft; E86.0 Dehydration; Z86.73 Personal history of transient ischemic attack (TIA), and cerebral infarction without residual deficits; E03.9 Hypothyroidism, unspecified; Z23 Encounter for immunization; I12.9 Hypertensive chronic kidney disease with stage 1 through stage 4 chronic kidney disease, or unspecified chronic kidney disease; J44.9 Chronic obstructive pulmonary disease, unspecified; R26.2 Difficulty in walking, not elsewhere classified; Z88.9 Allergy status to unspecified drugs, medicaments and biological substances; E87.6 Hypokalemia; N18.3 Chronic kidney disease, stage 3 (moderate); E83.39 Other disorders of phosphorus metabolism; K44.9 Diaphragmatic hernia without obstruction or gangrene; I77.9 Disorder of arteries and arterioles, unspecified; G43.909 Migraine, unspecified, not intractable, without status migrainosus; M19.90 Unspecified osteoarthritis, unspecified site; E83.42 Hypomagnesemia; K21.0 Gastro-esophageal reflux disease with esophagitis; B96.20 Unspecified Escherichia coli [E. coli] as the cause of diseases classified elsewhere; B96.4 Proteus (mirabilis) (morganii) as the cause of diseases classified elsewhere
CPT/HCPCS: 36415; 71045; 74176; 80048; 80053; 80069; 81001; 82607; 82728; 82746; 83540; 83550; 83605; 83690; 83735; 84100; 84443; 84484; 85014; 85018; 85025; 87040; 87077; 87086; 87186; 88305; 88342; 90686; 93005; 93010; 93971; 94640; 94760; 96360; 96361; 97110; 97162; 97165; 97530; 99285-25; C9113; G0008; G8978; G8979; G8987; G8988; J0360; J0696; J1650; J2185; J2405; J2765; J3010; J3475; J7030; J7040; J7060; J7120